=== PATIENT | male | born 1945 | race Caucasian/White ===

== ENCOUNTER 2018-02-07 07:54 | Emergency (ER) | payer OTHER, MEDICARE ==
[~2018-02-07] VITALS: Ht 172.7 cm; Wt 100.2 kg
[~2018-02-07 07:54] MED LIST: ALPRAZOLAM0.5 M4 PO; AMLODIPINE BESYL5 M1 PO; ATORVASTATIN CA40 M1 PO; BASAGLAR K100 UNIT/1 SC; BENAZEPRIL HCL40 MG PO; CITALOPRAM HBR20 MG PO; FLOMAX0.4 M1 PO; GABAPENTIN100 M2 PO; LORAZEPAM1 M1 PO; OXYCODONE-ACET1 EACH PO; POTASSIUM CHLO10 ME3 PO; TRADJENTA5 M1 PO; VITAMIN D32000 UNI1 PO; XARELTO20 M2 PO
[2018-02-07 08:55] LABS: ABSOLUTE BASOPHIL COUNT 0 /CUMM (0.0-0.2); ABSOLUTE EOSINOPHIL COUNT 0.1 /CUMM (0.0-0.7); ABSOLUTE GRANULOCYTE CT 4.3 /CUMM (1.4-6.5); ABSOLUTE MONOCYTE COUNT 0.7 /CUMM (0.10-0.60); BASOPHIL % 0.6 % (0.0-2.0); EOSINOPHIL % 1.7 % (0-5); GRANULOCYTE % 70.6 % (42.2-75.2); HEMATOCRIT 39.9 % (42-52); MEAN CORPUSCULAR HGB 28.9 PG (27.0-31.0); MEAN CORPUSCULAR HGB CONC 32.8 G/DL (33.0-37.0); MEAN PLATELET VOLUME 8.6 FL (7.4-10.4); PLATELET COUNT 216 /CUMM (130-400); RBC DISTRIBUTION WIDTH 14.7 % (11.5-14.5); RED BLOOD CELL CT 4.54 /CUMM (4.70-6.10)
--- NOTE | 2018-02-07 09:14 | CT SCAN REPORT ---
EXAMINATION: CT ABDOMEN AND PELVIS WITHOUT CONTRAST CLINICAL INFORMATION: Follow-up renal calculi. COMPARISON: CT abdomen and pelvis dated 02/02/2018. TECHNIQUE: Multidetector volumetric imaging was performed from the superior aspect of the liver through the pubic symphysis. Sagittal and coronal reformatted images were obtained on the technologist's workstation. DLP: A 53.12 mGy-cm FINDINGS: LUNG BASES: There is mild linear scar/subsegmental atelectasis in the lingula. There are moderate coronary artery and aortic annular atherosclerotic calcifications. LIVER, GALLBLADDER, AND BILIARY TREE: The liver is normal in size, shape, and attenuation. No focal hepatic lesion or biliary ductal dilatation is present. The gallbladder is unremarkable with no evidence of radiopaque gallstones, gallbladder wall thickening, or obvious pericholecystic inflammatory changes. PANCREAS: Unremarkable. SPLEEN: Unremarkable. ADRENAL GLANDS: Unremarkable. KIDNEYS AND URETERS: The kidneys are normal in size, shape, and attenuation. No hydronephrosis, hydroureter, or calculi seen. Low-attenuation left renal cysts are redemonstrated. No perinephric stranding. BLADDER: Unremarkable. GASTROINTESTINAL TRACT: The small and large bowel are unremarkable. The appendix is unremarkable. ABDOMINAL WALL: There are small fat-containing bilateral inguinal hernias. LYMPH NODES: Normal. VASCULAR: There is moderate aortoiliac atherosclerotic change. No abdominal aortic aneurysm is seen. PELVIC VISCERA: The prostate and seminal vesicles are unremarkable. Central prostate calcifications are noted. OSSEOUS STRUCTURES: There is multi-level thoracolumbar spondylosis and degenerative disc disease. Degenerative disc disease is most pronounced at L1-L2 through L3-L4. No acute or aggressive osseous abnormality is seen. IMPRESSION: 1. No urinary calculus or hydronephroureter is presently seen. 2. Left renal cysts are redemonstrated. 3. There are small fat-containing bilateral hernias. 4. There are thoracolumbar degenerative changes.
--- NOTE | 2018-02-07 09:36 | ED GI/GU/ABDOMINAL COMPLAINT ---
History of Present Illness General Chief Complaint: General Adult Stated Complaint: KIDNEY STONE Source: patient Exam Limitations: no limitations Allergies Coded Allergies: clindamycin (Severe, THROAT CLOSES 02/02/18) Reconcile Medications Alprazolam 0.5 MG TABLET 1 TAB PO TIDPRN PRN ANXIETY (Reported) Amlodipine Besylate 5 MG TABLET 1 TAB PO DAILY HEART (Reported) Atorvastatin Calcium 40 MG TABLET 1 TAB PO DAILY CHOLESTEROL (Reported) Benazepril HCl 40 MG TABLET 1 TAB PO DAILY HEART (Reported) Cholecalciferol (Vitamin D3) (Vitamin D3) 2,000 UNIT TABLET 1 TAB PO DAILY VITAMIN SUPPORT (Reported) Citalopram Hydrobromide (Citalopram HBr) 20 MG TABLET 1 TAB PO DAILY MENTAL HEALTH (Reported) Gabapentin 100 MG CAPSULE 1 CAP PO BID UNKNOWN (Reported) Insulin Glargine,Hum.rec.anlog (Basaglar Kwikpen U-100) 100 UNIT/ML (3 ML) INSULN.PEN 20 UNIT SC QPM DIABETES (Reported) Linagliptin (Tradjenta) 5 MG TABLET 1 TAB PO DAILY DIABETES (Reported) Lorazepam 1 MG TABLET 1 TAB PO DAILY PRN ANXIETY (Reported) Oxycodone HCl/Acetaminophen (Oxycodone-Acetaminophen 5-325) 5 MG-325 MG TABLET 1 TAB PO BIDP PRN PAIN (Reported) Oxycodone HCl/Acetaminophen (Percocet 5-325 MG Tablet) 5 MG-325 MG TABLET 1 TAB PO BID PRN PAIN Potassium Chloride 10 MEQ CAPSULE.ER 1 CAP PO DAILY SUPPLEMENT (Reported) Rivaroxaban (Xarelto) 20 MG TABLET 1 TAB PO QPM BLOOD THINNER (Reported) with food Tamsulosin HCl (Flomax) 0.4 MG CAP.ER.24H 1 CAP PO DAILY KIDNEY STONE Tamsulosin HCl (Flomax) 0.4 MG CAP.ER.24H 1 CAP PO DAILY KIDNEY STONE Triage Note: PT TO ED WITH C/O RIGHT FLANK AND RIGHT LEG PAIN "I WAS DIAGNOSED WITH A KIDNEY STONE 2MM LAST TUESDAY, NOT URINATING TOO MUCH THIS MORNING, CALLED DR MONTANO AND TOLD TO COME TO ED". Triage Nurses Notes Reviewed? yes Onset: Abrupt Duration: day(s): (5-6), changing over time, continues in ED, getting worse Timing: single episode today Quality/Severity: moderate, sharpness Severity Numbers: 8 Location: right flank, right lower quadrant Radiation: back, groin, RT LEG Activities at Onset: FALL Prior Abdominal Problems: none Past Sexual History: Unobtainable at this time No Modifying Factors: none Modifying Factors: Worsens With: movement, palpation. Associated Symptoms: abdominal pain HPI: 72-year-old male past medical history of CHF, coronary disease, hypertension hyperlipidemia and kidney stones presents for evaluation of worsening pain after being diagnosed with kidney stones a few days ago. Patient states that he was started on Flomax for a stone on the right side. He states that initially his pain was getting better until yesterday when he was walking up the steps she tripped and fell on the stairs. He states he landed on his right leg. He states that since then the pain has been present in the right lower back right flank radiating down to his right groin and right leg to the knee. The pain is worse with movement. It is intermittently worse. Describes it as sharp 7 out of 10. He is not taking any pain medicine. No numbness or tingling no hematuria fever chest pain shortness of breath dizziness or lightheadedness. (Mark Nowak) Vital Signs & Intake/Output Vital Signs & Intake/Output ED Intake and Output 02/08 0000 02/07 1200 Intake Total Output Total Balance Patient 221 lb Weight Weight Reported by Patient Measurement Method (Kati MCMAHAN,Bharat Castillo) Past History Travel History Traveled to [place] past 21 day No Medical History Any Pertinent Medical History? see below for history Neurological: NONE EENT: NONE Cardiovascular: CHF, hypertension, hyperlipidemia, BYPASS X6 Respiratory: pneumonia Gastrointestinal: NONE Hepatic: NONE Renal: NONE Musculoskeletal: NONE Psychiatric: anxiety Endocrine: diabetes Blood Disorders: NONE Cancer(s): NONE COMMISSION BROKER/Reproductive: NONE Surgical History Surgical History: non-contributory Psychosocial History What is your primary language Greek Tobacco Use: Never used ETOH Use: denies use Illicit Drug Use: denies illicit drug use Family History Hx Contributory? No (Mark Nowak) Review of Systems Review of Systems Constitutional: Reports: no symptoms. EENTM: Reports: no symptoms. Respiratory: Reports: no symptoms. Cardiovascular: Reports: no symptoms. GI: Reports: see HPI, abdominal pain. Genitourinary: Reports: no symptoms. Musculoskeletal: Reports: see HPI, back pain, joint pain, muscle pain, muscle stiffness. Skin: Reports: no symptoms. Neurological/Psychological: Reports: no symptoms. Hematologic/Endocrine: Reports: no symptoms. Immunologic/Allergic: Reports: no symptoms. All Other Systems: Reviewed and Negative (Mark Nowak) Physical Exam Physical Exam General Appearance: well developed/nourished, no apparent distress, alert, awake Head: atraumatic, normal appearance Eyes: Bilateral: normal appearance, PERRL, EOMI, normal inspection. Ears, Nose, Throat, Mouth: hearing grossly normal, moist mucous membrane Neck: normal inspection, supple, full range of motion Respiratory: normal breath sounds, chest non-tender, no respiratory distress, lungs clear Cardiovascular: regular rate/rhythm, normal peripheral pulses Peripheral Pulses: 2+ radial (R), 2+ radial (L) Gastrointestinal: normal bowel sounds, soft, no organomegaly, tenderness (RT FLANK) Back: normal inspection, normal range of motion, RIGHT-SIDED LUMBAR PARASPINOUS MUSCLE TENDERNESS TO PALPATION Extremities: normal range of motion Neurologic/Psych: no motor/sensory deficits, awake, alert, oriented x 3, normal gait Skin: intact, normal color, warm/dry Core Measures ACS in differential dx? No Sepsis Present: No Sepsis Focused Exam Completed? No (Mark Nowak) Progress Differential Diagnosis: AAA, appendicitis, diverticulitis, hepatitis, hernia, inflamm bowel dis, pancreatitis, prostatitis, peptic ulcer, PUD/GERD, pyelonephritis, SBO, STD, ureterolithiasis, urinary retention, urethritis, UTI/ pyelo Diagnostic Imaging: Viewed by Me: Radiology Read, CT Scan. Discussed w/RAD: Radiology Read, CT Scan. Radiology Impression: PATIENT: LORE HANNON PRESENT AGE: 72 PATIENT ACCOUNT NO: [id number] : 44 LOCATION: [facility] ORDERING PHYSICIAN: Mark CONNELL SERVICE DATE: 02/07/18 EXAM TYPE: CAT - CT ABD & PELVIS W/O IV CONTRAS EXAMINATION: CT ABDOMEN AND PELVIS WITHOUT CONTRAST CLINICAL INFORMATION: Follow-up renal calculi. COMPARISON: CT abdomen and pelvis dated 02/02/2018. TECHNIQUE: Multidetector volumetric imaging was performed from the superior aspect of the liver through the pubic symphysis. Sagittal and coronal reformatted images were obtained on the technologist's workstation. DLP: A 53.12 mGy-cm FINDINGS: LUNG BASES: There is mild linear scar/subsegmental atelectasis in the lingula. There are moderate coronary artery and aortic annular atherosclerotic calcifications. LIVER, GALLBLADDER, AND BILIARY TREE: The liver is normal in size, shape, and attenuation. No focal hepatic lesion or biliary ductal dilatation is present. The gallbladder is unremarkable with no evidence of radiopaque gallstones, gallbladder wall thickening, or obvious pericholecystic inflammatory changes. PANCREAS: Unremarkable. SPLEEN: Unremarkable. ADRENAL GLANDS: Unremarkable. KIDNEYS AND URETERS: The kidneys are normal in size, shape, and attenuation. No hydronephrosis, hydroureter, or calculi seen. Low-attenuation left renal cysts are redemonstrated. No perinephric stranding. BLADDER: Unremarkable. GASTROINTESTINAL TRACT: The small and large bowel are unremarkable. The appendix is unremarkable. ABDOMINAL WALL: There are small fat-containing bilateral inguinal hernias. LYMPH NODES: Normal. VASCULAR: There is moderate aortoiliac atherosclerotic change. No abdominal aortic aneurysm is seen. PELVIC VISCERA: The prostate and seminal vesicles are unremarkable. Central prostate calcifications are noted. OSSEOUS STRUCTURES: There is multi-level thoracolumbar spondylosis and degenerative disc disease. Degenerative disc disease is most pronounced at L1-L2 through L3-L4. No acute or aggressive osseous abnormality is seen. IMPRESSION: 1. No urinary calculus or hydronephroureter is presently seen. 2. Left renal cysts are redemonstrated. 3. There are small fat-containing bilateral hernias. 4. There are thoracolumbar degenerative changes. DICTATED BY: Lore Pan MD DATE/TIME DICTATED:02/07/18902 EMERGENCY RESPONSE TECHNICIAN:MELINA DATE/TIME TRANSCRIBED:02/07/18902 CONFIDENTIAL, DO NOT COPY WITHOUT APPROPRIATE AUTHORIZATION. <Electronically signed in Other Vendor System> SIGNED BY: Lore Pan MD 02/07/18913, PATIENT: LORE HANNON SR PRESENT AGE: 72 PATIENT ACCOUNT NO: [id number] : 44 LOCATION: [facility] ORDERING PHYSICIAN: Mark CONNELL SERVICE DATE: 02/07/18 EXAM TYPE: RAD - XRY-KNEE COMPLETE RIGHT EXAMINATION: XR KNEE, RIGHT CLINICAL INFORMATION: Pain status-post fall; question fracture. COMPARISON: None. TECHNIQUE: Frontal, bilateral oblique and lateral views of the right knee are submitted. FINDINGS: Bony alignment and mineralization are normal. The lateral joint space compartment is well- maintained and shows mild peripheral osteophyte formation. There is mild narrowing and peripheral osteophyte formation of the medial and patellofemoral joint space compartments. No acute fracture or dislocation is seen. There is a small right knee joint effusion. There are diffuse atherosclerotic calcifications. No foreign body is seen. IMPRESSION: 1. No right knee fracture or dislocation is seen. 2. There is a small right knee joint effusion. 3. There are mild tricompartment osteoarthritic changes. DICTATED BY: Lore Pan MD DATE/TIME DICTATED:02/07/181027 EMERGENCY RESPONSE TECHNICIAN:MELINA DATE/TIME TRANSCRIBED:02/07/181027 CONFIDENTIAL, DO NOT COPY WITHOUT APPROPRIATE AUTHORIZATION. <Electronically signed in Other Vendor System> Initial ED EKG: none (Chris CONNELL,Mark) Plan of Care: Orders Procedure Date/time Status URINALYSIS 02/08 816 Complete COMPREHENSIVE METABOLIC PANEL 02/08 816 Complete CBC WITHOUT DIFFERENTIAL 02/08 816 Complete Laboratory Tests 02/07/18 0844: Urine Color YEL, Urine Clarity CLEAR, Urine pH 6.0, Ur Specific [place] 1.020, Urine Protein NEG, Urine Ketones NEG, Urine Nitrite NEG, Urine Bilirubin NEG, Urine Urobilinogen 0.2, Ur Leukocyte Esterase NEG, Ur Microscopic EXAM NOT REQUIRED, Urine Hemoglobin NEG, Urine Glucose NEG 02/07/18 0824: Anion Gap 10, Estimated GFR > 60, BUN/Creatinine Ratio 22.2, Glucose 150 H, Calcium 8.6, Total Bilirubin 0.8, AST 8 L, ALT 23, Alkaline Phosphatase 74, Total Protein 6.1 L, Albumin 3.3 L, Globulin 2.8, Albumin/Globulin Ratio 1.2, CBC w Diff NO MAN DIFF REQ, RBC 4.54 L, MCV 88.0, MCH 28.9, MCHC 32.8 L, RDW 14.7 H, MPV 8.6, Gran % 70.6, Lymphocytes % 16.0 L, Monocytes % 11.1 H, Eosinophils % 1.7, Basophils % 0.6, Absolute Granulocytes 4.3, Absolute Lymphocytes 1.0 L, Absolute Monocytes 0.7 H, Absolute Eosinophils 0.1, Absolute Basophils 0 \\Patient seen and evaluated. He was diagnosed with a 2 mm kidney stone at the right ureterovesicular junction. He states that he was feeling better until he had a mechanical fall and is now having pain radiating down the right leg. He is able to walk and bear weight without difficulty full range of motion the leg is intact. X-rays negative for fracture. CT scan abdomen and pelvis shows that the kidney stone his out of the ureter. There is no hydronephrosis. No white blood cell count no signs of infection in the urine. Patient states that his pain is well-controlled is tolerating fluids. Advised him to continue with Flomax continue increasing fluids. Tylenol for pain. Percocet for severe pain only. Follow-up with primary care doctor and urologist. Discussed return precautions. Patient appears well. He agrees. Case discussed with Dr. Parikh he agrees with the plan. (Mark Nowak) (Kati MCMAHAN,Bharat Castillo) Departure Departure Disposition: HOME OR SELF CARE Condition: Stable Clinical Impression Primary Impression: Renal colic Referrals: [place] MCMAHAN,Oscar Gibson DO (PCP/Family) Additional Instructions: Rest and drink plenty of fluids. Continue Flomax as directed. Tylenol 1000 mg every 6-8 hours as needed for pain Percocet for severe pain only this may cause drowsiness. Follow-up with your primary care doctor and provided urologist this week. Monitor symptoms closely return with any concerns. Departure Forms: Customer Survey General Discharge Information Prescriptions: Current Visit Scripts Oxycodone HCl/Acetaminophen (Percocet 5-325 MG Tablet) 1 TAB PO BID PRN PAIN #6 TAB (Mark Nowak) PA/ACQUISITIONS ANALYST Co-Sign Statement Statement: ED Attending supervision documentation- [X] I saw and evaluated the patient. I have also reviewed all the pertinent lab results and diagnostic results. I agree with the findings and the plan of care as documented in the PA's/ACQUISITIONS ANALYST's documentation. Patient presents complaining of a severe right flank pain radiating into the right groin after being seen in the emergency department a few days ago and diagnosed with a 2 mm kidney stone. Physical examination reveals a soft nontender abdomen with no apparent bladder distention. [] I have reviewed the ED Record and agree with the PA's/ACQUISITIONS ANALYST's documentation. [] Additions or exceptions (if any) to the PAs/ACQUISITIONS ANALYST's note and plan are summarized below: [] (Kati MCMAHAN,Bharat Castillo)
--- NOTE | 2018-02-07 10:34 | RADIOLOGY REPORT ---
EXAMINATION: XR KNEE, RIGHT CLINICAL INFORMATION: Pain status-post fall; question fracture. COMPARISON: None. TECHNIQUE: Frontal, bilateral oblique and lateral views of the right knee are submitted. FINDINGS: Bony alignment and mineralization are normal. The lateral joint space compartment is well-maintained and shows mild peripheral osteophyte formation. There is mild narrowing and peripheral osteophyte formation of the medial and patellofemoral joint space compartments. No acute fracture or dislocation is seen. There is a small right knee joint effusion. There are diffuse atherosclerotic calcifications. No foreign body is seen. IMPRESSION: 1. No right knee fracture or dislocation is seen. 2. There is a small right knee joint effusion. 3. There are mild tricompartment osteoarthritic changes.
[2018-02-07 10:36] VITALS: BP 163/88
[2018-02-07] MEDS ORDERED: PERCOCET 5-3251 EACH PO (10:39)
== END 2018-02-07 10:53 ==
LOC: ERH 07:54
PROVIDERS: Physician Assistant Medical
DX: N23 Unspecified renal colic (principal); M79.604 Pain in right leg
CPT/HCPCS: 73562-RT; 74176; 81003

== ENCOUNTER 2018-03-09 15:32 | Emergency (ER) | payer OTHER, MEDICARE ==
[~2018-03-09] VITALS: Ht 172.7 cm; Wt 99.3 kg
[~2018-03-09 15:32] MED LIST changes: +PERCOCET 5-3251 EACH PO
[2018-03-09 15:52] LABS: ABSOLUTE BASOPHIL COUNT 0.1 /CUMM (0.0-0.2); ABSOLUTE EOSINOPHIL COUNT 0.1 /CUMM (0.0-0.7); ABSOLUTE GRANULOCYTE CT 4.4 /CUMM (1.4-6.5); ABSOLUTE LYMPH COUNT 1.3 /CUMM (1.2-3.4); ABSOLUTE MONOCYTE COUNT 0.7 /CUMM (0.10-0.60); EOSINOPHIL % 1.5 % (0-5); GRANULOCYTE % 67.5 % (42.2-75.2); MEAN CORPUSCULAR HGB 29.6 PG (27.0-31.0); MEAN CORPUSCULAR HGB CONC 33.2 G/DL (33.0-37.0); MEAN CORPUSCULAR VOLUME 89.1 FL (80.0-94.0); PLATELET COUNT 195 /CUMM (130-400); RBC DISTRIBUTION WIDTH 15.1 % (11.5-14.5); RED BLOOD CELL CT 4.37 /CUMM (4.70-6.10); WHITE BLOOD CELL COUNT 6.5 /CUMM (4.8-10.8)
--- NOTE | 2018-03-09 16:13 | ED CARDIAC/CP/PALPITATIONS ---
See Addendum History of Present Illness General Chief Complaint: Chest Pain Stated Complaint: CHEST PAIN Source: patient Exam Limitations: no limitations Vital Signs & Intake/Output Vital Signs & Intake/Output Vital Signs Date Time Temp Pulse Resp B/P B/P Pulse O2 O2 Flow FiO2 Mean Ox Delivery Rate 03/09 2143 98.4 54 18 148/71 96 Room Air 03/09 2012 98.4 52 18 176/84 03/09 2005 98.4 52 18 176/84 96 Room Air 03/09 1942 52 18 192/86 94 Room Air 03/09 1838 98.2 63 18 184/95 95 Room Air 03/09 1547 98.3 78 20 173/96 95 Room Air Room Air Allergies Coded Allergies: clindamycin (Severe, THROAT CLOSES 02/02/18) Triage Note: PT TO ED FOR C/C OF MIDSTERNAL CHEST PAIN THAT STARTED AROUND 1400 TODAY BUT COMPLAINED OF WEAKNESS ALL DAY. PT HAS SIGNIFICANT CARDIAC HISTORY WITH "6 CARDIAC BIPASSES." SOME SOB WITH EXERTION. ON XARELTO. REPORTS HE FELT CLAMMY ALL DAY WELL. Triage Nurses Notes Reviewed? yes HPI: Patient presents for evaluation of chest pain that began abruptly about 2 hours ago. Patient describes the pain as a moderate discomfort and squeezing sensation across the chest. He states he just can't seem to get comfortable. He also has indurated how tired he feels. The chest pains of been intermittent since onset but he can't state how often he feels it. He likewise cannot state how long the pains last. Fortunately he has no chest pain at present. He denies radiation of the pain. He has felt sweaty all day today. He denies prior episodes of chest pain. He likewise denies leg pain or leg swelling. He does refer a past history of multiple bypasses. (Kati MCMAHAN,Bharat Castillo) Reconcile Medications Alprazolam 0.5 MG TABLET 1 TAB PO TIDPRN PRN ANXIETY (Reported) Amlodipine Besylate 5 MG TABLET 1 TAB PO DAILY HEART (Reported) Atorvastatin Calcium 40 MG TABLET 1 TAB PO DAILY CHOLESTEROL (Reported) Benazepril HCl 40 MG TABLET 1 TAB PO DAILY HEART (Reported) Cholecalciferol (Vitamin D3) (Vitamin D3) 2,000 UNIT TABLET 1 TAB PO DAILY VITAMIN SUPPORT (Reported) Citalopram Hydrobromide (Citalopram HBr) 20 MG TABLET 2 TAB PO DAILY MENTAL HEALTH (Reported) Gabapentin 100 MG CAPSULE 2 CAP PO DAILY NERVE PAIN (Reported) Insulin Glargine,Hum.rec.anlog (Basaglar Kwikpen U-100) 100 UNIT/ML (3 ML) INSULN.PEN 20 UNIT SC QPM DIABETES (Reported) Linagliptin (Tradjenta) 5 MG TABLET 1 TAB PO DAILY DIABETES (Reported) Lorazepam 1 MG TABLET 1 TAB PO DAILY ANXIETY (Reported) Oxycodone HCl/Acetaminophen (Oxycodone-Acetaminophen 5-325) 5 MG-325 MG TABLET 1-2 TAB PO AD PRN PAIN (Reported) Potassium Chloride 10 MEQ CAPSULE.ER 1 CAP PO DAILY SUPPLEMENT (Reported) Rivaroxaban (Xarelto) 20 MG TABLET 1 TAB PO QPM BLOOD THINNER (Reported) with food (Liban MCMAHAN,Negrito Finley) Past History Travel History Traveled to [place] past 21 day No Medical History Any Pertinent Medical History? see below for history Neurological: NONE EENT: NONE Cardiovascular: CHF, hypertension, hyperlipidemia, BYPASS X6 Respiratory: pneumonia Gastrointestinal: NONE Hepatic: NONE Renal: KIDNEY STONE Musculoskeletal: NONE Psychiatric: anxiety Endocrine: diabetes Blood Disorders: NONE Cancer(s): NONE EVENTS AND PROMOTIONS ASSISTANT/Reproductive: NONE Surgical History Surgical History: non-contributory Psychosocial History What is your primary language Danish Tobacco Use: Never used ETOH Use: denies use Illicit Drug Use: denies illicit drug use Family History Hx Contributory? No (Bharat Parikh MD) Review of Systems Review of Systems Constitutional: Reports: no symptoms. EENTM: Reports: no symptoms. Respiratory: Reports: no symptoms. Cardiovascular: Reports: chest pain. GI: Reports: no symptoms. Genitourinary: Reports: no symptoms. Musculoskeletal: Reports: no symptoms. Skin: Reports: no symptoms. Neurological/Psychological: Reports: no symptoms. Hematologic/Endocrine: Reports: no symptoms. Immunologic/Allergic: Reports: no symptoms. All Other Systems: Reviewed and Negative (Bharat Parikh MD) Physical Exam Physical Exam Cardiovascular: see below Core Measures ACS in differential dx? Yes CVA/TIA Diagnosis No Sepsis Present: No Sepsis Focused Exam Completed? No (Bharat Parikh MD) Progress Differential Diagnosis: AMI, atrial fibrillation, musculoskeletal pain, pericarditis, unstable angina Plan of Care: Orders Procedure Date/time Status TROPONIN LEVEL 03/09 1930 Complete EKG 03/09 1930 Active Telemetry/Modern Dancer 03/09 161 Active Add-on Test (ER Only) 03/09 1617 Active MAGNESIUM 03/09 1540 Complete TROPONIN LEVEL 03/09 1538 Complete COMPREHENSIVE METABOLIC PANEL 03/09 153 Complete CBC WITHOUT DIFFERENTIAL 03/09 1538 Complete EKG 03/09 1533 Active Laboratory Tests 03/09/18 193: Troponin I < 0.01 03/09/18 1540: Anion Gap 11, Estimated GFR > 60, BUN/Creatinine Ratio 25.5 H, Glucose 171 H, Calcium 8.5, Magnesium 1.9, Total Bilirubin 0.7, AST 10 L, ALT 17 L, Alkaline Phosphatase 71, Troponin I < 0.01, Total Protein 6.1 L, Albumin 3.5, Globulin 2.6, Albumin/Globulin Ratio 1.3, CBC w Diff NO MAN DIFF REQ, RBC 4.37 L, MCV 89.1, MCH 29.6, MCHC 33.2, RDW 15.1 H, MPV 9.0, Gran % 67.5, Lymphocytes % 19.6 L, Monocytes % 10.4 H, Eosinophils % 1.5, Basophils % 1.0, Absolute Granulocytes 4.4, Absolute Lymphocytes 1.3, Absolute Monocytes 0.7 H, Absolute Eosinophils 0.1, Absolute Basophils 0.1 Initial ED EKG: NSR, rate (97), no ST T wave changes Prior EKG: unchanged Comments: 03/09/2018 7:28:03 PM patient 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 (Kati MCMAHAN,Bharat Castillo) Repeat EKG: unchanged (Liban MCMAHAN,Negrito Finley) Departure Departure Disposition: STILL A PATIENT Condition: Stable Clinical Impression Primary Impression: Chest pain Referrals: Oscar Brice DO (PCP/Family) Departure Forms: Customer Survey General Discharge Information (Kati MCMAHAN,Bharat Castillo) Departure Comments 03/09/18, 21:52... Pt had 1 hour episode of upper abdominal discomfort, self resolved. pt has had negative troponins x 2, ekg benign x 2... pt wishes to go home... I discussed with him an admission. He declines. He does not wish to stay to establish cards follow up. Pt referred to cardiology. Close follow up advised. (Liban MCMAHAN,Negrito Finley) Critical Care Note Critical Care Note Critical Care Time: non-applicable (Kati MCMAHAN,Bharat Castillo)
[2018-03-09 21:43] VITALS: BP 148/71
== END 2018-03-09 21:55 ==
LOC: ERH 15:32
PROVIDERS: Emergency Medicine
DX: R07.89 Other chest pain (principal)
CPT/HCPCS: 93005; 93010